=== PATIENT | female | born 1965 | race Caucasian/White ===

== ENCOUNTER 2018-03-25 06:32 | Emergency (ER) | payer OTHER ==
[2018-03-25 07:12] VITALS: BP 126/84; PULSE 81; TEMP 97.7; BMI 27.3
--- NOTE | 2018-03-25 07:45 | PDOC ---
History of Present Illness - General History Source: Patient Exam Limitations: No Limitations <Laura Parks - Last Filed: 03/25/18 10:22> - General History Source: Patient Exam Limitations: No Limitations - History of Present Illness Initial Comments: 03/25/18 08:18 The patient is a 53 year old female with no significant past medical history who presents to the emergency department for evaluation of right arm numbness since 6am. The patient reports waking up with right forearm numbness, waning in intensity, non-radiating, with no modifying factors. The patient states she is unsure if she slept on her right arm. She states her concern for the numbness in her right arm prompted her to visit the emergency department for further evaluation. The patient denies any any other occurrences of numbness. The patient denies chest pain, neck pain, blurry vision, shortness of breath, headache, and dizziness. Denies fevers, chills, nausea, vomiting, diarrhea, and constipation. Allergies: NKDA Social history: No reported cigarette, alcohol, or drug use. PCP: Dr. Oskar Horta ([phone]) <Kd Thomas - Last Filed: 03/25/18 10:36> - General Chief Complaint: Pain, Acute Stated Complaint: NUMBNESS,RT ARM Time Seen by Provider: 03/25/18 07:45 Past History - Suicide/Smoking/Psychosocial Hx Smoking History: Never smoked Have you smoked in the past 12 months: No Information on smoking cessation initiated: No Hx Alcohol Use: No Drug/Substance Use Hx: No <Laura Parks - Last Filed: 03/25/18 10:22> <Kd Thomas - Last Filed: 03/25/18 10:36> - Past Medical History Allergies/Adverse Reactions: Allergies Allergy/AdvReac Type Severity Reaction Status Date / Time No Known Allergies Allergy Verified 03/25/18 07:12 Review of Systems - Review of Systems Able to Perform ROS?: Yes Comments:: GENERAL/CONSTITUTIONAL: No fever or chills. No weakness. HEAD, EYES, EARS, NOSE AND THROAT: No change in vision. No ear pain or discharge. No sore throat. CARDIOVASCULAR: No chest pain or shortness of breath. RESPIRATORY: No cough, wheezing, or hemoptysis. GASTROINTESTINAL: No nausea, vomiting, diarrhea or constipation. GENITOURINARY: No dysuria, frequency, or change in urination. MUSCULOSKELETAL: No joint or muscle swelling or pain. No neck or back pain. SKIN: No rash NEUROLOGIC: (+)Right forearm numbness. No headache, vertigo, loss of consciousness, or change in strength/sensation. ENDOCRINE: No increased thirst. No abnormal weight change. HEMATOLOGIC/LYMPHATIC: No anemia, easy bleeding, or history of blood clots. ALLERGIC/IMMUNOLOGIC: No hives or skin allergy. <Kd Tohmas - Last Filed: 03/25/18 10:36> *Physical Exam - Vital Signs Last Vital Signs Temp Pulse Resp BP Pulse Ox 97.7 F 81 16 126/84 98 03/25/18 07:09 03/25/18 07:09 03/25/18 07:09 03/25/18 07:09 03/25/18 07:09 <Laura Parks - Last Filed: 03/25/18 10:22> - Vital Signs Last Vital Signs Temp Pulse Resp BP Pulse Ox 97.7 F 81 16 126/84 98 03/25/18 07:09 03/25/18 07:09 03/25/18 07:09 03/25/18 07:09 03/25/18 07:09 - Physical Exam Comments: GENERAL: Awake, alert, and fully oriented, in no acute distress HEAD: No signs of trauma EYES: PERRLA, EOMI, sclera anicteric, conjunctiva clear ENT: Auricles normal inspection, hearing grossly normal, nares patent, oropharynx clear without exudates. Moist mucosa NECK: Normal ROM, supple. LUNGS: Breath sounds equal, clear to auscultation bilaterally. No wheezes, and no crackles HEART: Regular rate and rhythm, normal S1 and S2, no murmurs, rubs or gallops ABDOMEN: Soft, nontender. No guarding, no rebound. No masses EXTREMITIES: Normal range of motion, no edema. No clubbing or cyanosis. No cords, erythema, or tenderness NEUROLOGICAL: (+)Decreased sensation in right forearm compared to left forearm. Normal speech, normal gait SKIN: Warm, Dry, normal turgor, no rashes or lesions noted <Kd Thomas - Last Filed: 03/25/18 10:36> ED Treatment Course - LABORATORY CBC & Chemistry Diagram: 03/25/18 08:25 03/25/18 08:25 <Laura Parks - Last Filed: 03/25/18 10:22> - LABORATORY CBC & Chemistry Diagram: 03/25/18 08:25 03/25/18 08:25 <Kd Thomas - Last Filed: 03/25/18 10:36> Medical Decision Making - Medical Decision Making 03/25/18 08:26 EKG: SR, rate of 80 bpm, axis nml, intervals nml, no st elevations or depressions, t waves upright 03/25/18 10:22 Ms Mccarthy is a 53 yo F with a history of elevated triglicerides who presents to the ER with a complaint of right forearm numbness pt awoke with these symptoms no headache No dizziness no focal weakness No facial asymmetry Pt states this has happened to her one time before but resolved No prior history of Stroke or TIA or CAD On examination RRR CTA bilaterally Pt is awake and alert Answers all questions LOC Questions answered appropriately LOC commands completed EOMI Visual graves nml No facial palsy Motor Arms and Legs Limb Ataxia Sensory- slightly decreased sensation right forearm between elbow ad wrist Best Language Dysarthria Extinction/Inattention Will do Basic labs CT head 03/25/18 10:29 Laboratory Tests 03/25/18 03/25/18 08:25 08:25 WBC 7.0 Hgb 13.9 Hct 40.9 Plt Count 265 Sodium 140 Potassium 3.8 Chloride 107 Carbon Dioxide 27 BUN 13 Creatinine 0.9 Random Glucose [address] head negative Case reviewed with Dr Becker will discharge to home Clinical impression: Right arm numbness (resolved), initial presentation likely peripheral nerve palsy <Laura Parks - Last Filed: 03/25/18 10:22> - Medical Decision Making Case discussed with Dr. Becker at 10:30. 03/25/18 10:35 <Kd Thomas - Last Filed: 03/25/18 10:36> *DC/Admit/Observation/Transfer - Discharge Dispostion Decision to Admit order: No <Laura Parks - Last Filed: 03/25/18 10:22> - Attestations Scribe Attestion: Documentation prepared by Kd Thomas, acting as medical collections representative for Laura Parks MD. <Kd Thomas - Last Filed: 03/25/18 10:36> Diagnosis at time of Disposition: Right arm numbness - Discharge Dispostion Disposition: HOME Condition at time of disposition: Stable - Referrals Referrals: Oskar Horta MD [Primary Care Provider] - - Patient Instructions Printed Discharge Instructions: DI for Numbness/tingling Additional Instructions: Ms Mccarthy thank you for coming in to the ER today Please be sure to follow up with your primary care physician within 2 days return to the ER with recurrent symptoms - Post Discharge Activity
[2018-03-25 09:01] LABS: BASO % 0.7 % (0-2.0); EOS % 0.8 % (0-4.5); HEMATOCRIT 40.9 % (32.4-45.2); HEMOGLOBIN 13.9 GM/dL (10.7-15.3); LYMPH % 24.1 % (8-40); MCH 32.1 pg (25.7-33.7); MCHC 33.9 g/dl (32.0-36.0); MEAN CELL VOLUME 94.9 fl (80-96); MEAN PLT VOLUME 7.9 fl (7.5-11.1); MONO % 8.2 % (3.8-10.2); NEUT % 66.2 % (42.8-82.8); PLATELET COUNT 265 K/MM3 (134-434); RBC 4.31 M/mm3 (3.60-5.2); RDW 13.9 % (11.6-15.6)
[2018-03-25 09:18] LABS: ANION GAP 6 (8-16); BLOOD UREA NITROGEN 13 mg/dL (7-18); CALCIUM 8.8 mg/dL (8.5-10.1); CHLORIDE 107 mmol/L (98-107); CO2 27 mmol/L (21-32); CREATININE 0.9 mg/dL (0.55-1.02); GLUCOSE,RANDOM 110 mg/dL (74-106); POTASSIUM 3.8 mmol/L (3.5-5.1); SODIUM 140 mmol/L (136-145)
--- NOTE | 2018-03-26 11:45 | EKG ---
Test Reason : Blood Pressure : / mmHG Vent. Rate : 080 BPM Atrial Rate : 080 BPM P-R Int : 148 ms QRS Dur : 080 ms QT Int : 350 ms P-R-T Axes : 068 064 050 degrees QTc Int : 403 ms NORMAL SINUS RHYTHM NORMAL ECG NO PREVIOUS ECGS AVAILABLE Confirmed by MD Shamar, Terrell ([id number]) on 03/26/2018 11:45:04 AM Referred By: Confirmed By:Terrell Ibanez MD
== END 2018-03-25 10:40 | disposition home or self-care (01) ==
LOC: JER 06:32
DX: R20.0 Anesthesia of skin (principal)
CPT/HCPCS: 36415; 70450-TC; 80048; 85025; 93005; 93010; 99282-25